=== PATIENT | male | born 1950 | race African-American/Black ===

== ENCOUNTER 2018-01-03 16:39 | Emergency (ER) | payer MEDICARE, MEDICAID ==
[~2018-01-03] VITALS: Ht 182.9 cm; Wt 89.0 kg
[2018-01-03] MEDS ORDERED: KETOROLAC 60MG/2ML VIAL IM ONE (20:45)
[2018-01-03 21:08] LABS: CHLORIDE 101 mEq/L (98-107)
[2018-01-03 21:16] LABS: HEMATOCRIT. 37.3 % (42.0-52.0); MEAN CORPUSCULAR HEMOGLOBIN 31.7 pg (28.0-32.0); MEAN CORPUSCULAR VOLUME 91.2 fL (80.0-94.0); MEAN PLATELET VOLUME 7.3 fl (7.4-10.4); PLATELET 246 x1000/uL (130-400); RED BLOOD CELL COUNT 4.09 mill/uL (4.7-6.1)
[2018-01-03 21:21] VITALS: BP 204/92
[2018-01-03 21:30] LABS: CLARITY URINE CLEAR (CLEAR); COLOR URINE DARK YELLOW (YELLOW); KETONES URINE TRACE (NEGATIVE); LEUKOCYTE ESTERASE URINE NEGATIVE (NEGATIVE); NITRITE URINE NEGATIVE (NEGATIVE); OCCULT BLOOD URINE NEGATIVE (NEGATIVE); PROTEIN URINE 2+ (NEGATIVE); SPECIFIC GRAVITY URINE 1.029 (1.005-1.030); UROBILINOGEN URINE 0.2 E.U./dL (0.2-1.0)
[2018-01-03 21:41] LABS: PLATELET ESTIMATE NORMAL
[2018-01-03] MEDS ORDERED: LIDOCAINE HCL 1% 20ML VIAL (Pyxis) INJ MC ONE (22:00)
[2018-01-04] MEDS ORDERED: PIPERACILLIN/TAZOBACTAM 3.375GM/50ML PREMIX IV ONE (01:00)
[2018-01-04] MEDS ORDERED: VANCOMYCIN 1 G PREMIX 200 ML IV SCH (01:00)
== END 2018-01-04 01:28 | disposition left against medical advice (07) ==
LOC: ER 18:22 → CANBEDREQ 01-04 04:02
DX: M79.89 Other specified soft tissue disorders (principal); M10.9 Gout, unspecified
CPT/HCPCS: 36415; 73562; 73630; 80053; 81003; 84550; 85025; 87070; 87205; 89050; 89060; 96372; 99285; J1885; J3490

== ENCOUNTER 2018-02-14 18:53 | Emergency (ER) | payer BC, MEDICAID ==
[~2018-02-14] VITALS: Ht 182.9 cm; Wt 88.5 kg
[2018-02-14] MEDS ORDERED: allopurinol (19:16)
[2018-02-14 21:30] VITALS: BP 158/59
== END 2018-02-14 21:35 | disposition home or self-care (01) ==
LOC: ER 20:44
DX: M25.462 Effusion, left knee (principal); M10.9 Gout, unspecified
CPT/HCPCS: 99281